=== PATIENT | female | born 1990 | race African-American/Black ===

== ENCOUNTER 2017-06-21 11:05 | Emergency (ER) | payer SELFPAY ==
[~2017-06-21] VITALS: Ht 177.8 cm; Wt 75.0 kg
[~2017-06-21 11:05] MED LIST: DOXY100T PO; IBUP800T23 PO; LORTA5 PO; PENI500T PO
[2017-06-21 11:07] VITALS: BP 140/71; PULSE 105; RESP 18; TEMP 98.7; O2SAT 100
[2017-06-21] MEDS ORDERED: NAPR500 PO (11:37)
[2017-06-21] MEDS ORDERED: CLIN150C14 PO (11:37)
--- NOTE | 2017-06-21 11:43 | PD ---
HPI Chief Complaint: Oral / Dental Pain or Problem Time Seen by Provider: 11:21 Travel History International Travel<30 days: No Contact w/Intl Traveler<30days: No Traveled to known affect area: No History of Present Illness HPI Patient comes emergency department complaining of a dental abscess ongoing for 1 week. Patient reports she has been taking penicillin that she have her mom with no improvement of symptoms. Patient also been gargling with warm salt water gargles as well as applying warm compresses with minimal to no improvement of symptoms. Pain is worse with eating. Denies any fevers, difficulty swallowing, or . Denies any radiation of pain. Describes pain as pressure-like in nature of her right mandible anteriorly. PFSH Past Medical History Anemia: Yes Asthma: No Anxiety: No Depression: No Heart Rhythm Problems: No Cancer: No Cardiovascular Problems: No High Cholesterol: No Chemotherapy: No Chest Pain: No Congestive Heart Failure: No COPD: No Diabetes: No Diminished Hearing: No Endocrine: No Gastrointestinal Disorders: No Genitourinary: No Hypertension: Yes (during ) Immune Disorder: No Implanted Vascular Access Dvce: No Musculoskeletal: No Neurologic: No Psychiatric: No Reproductive: No Respiratory: No Radiation Therapy: No Sleep Apnea: No Thyroid Disease: No ?: Not Menopausal: No : 1 Para: 1 Ectopic : No Ovarian Cysts: No Dilation and Curettage (D&C): No Tubal Ligation: No Past Surgical History Section: Yes (2010) Other Surgery: Yes (c sections ) Social History Alcohol Use: Yes (OCCASIONALLY) Tobacco Use: Yes (5 CIG PER DAY) Substance Use: No Allergies-Medications (Allergen,Severity, Reaction): Coded Allergies: No Known Allergies (Unverified , 04/18/13) Reported Meds & Prescriptions Reported Meds & Active Scripts Active Naprosyn (Naproxen) 500 Mg Tab 500 Mg PO Q12HR Clindamycin (Clindamycin HCl) 150 Mg Cap 2 Cap PO Q6H 10 Days Reported Doxycycline Hyclate 100 mg (Doxycycline Hyclate) 100 Mg Tab 100 Mg PO BID 5 Days Hydrocodone/Acetaminophen 5 mg/325 mg 1 Tab Tab 1 Tab PO Q4H PRN Pen Vk (Penicillin V Potassium) 500 Mg Tab 500 Mg PO DAILY Ibuprofen 800 Mg Tab 800 Mg PO Q6H PRN Review of Systems Except as stated in HPI: all other systems reviewed are Neg Physical Exam Narrative GENERAL: Well-developed, well nourished, in no acute distress, and non-ill appearing. SKIN: Focused skin assessment warm and dry. HEAD: Atraumatic. Normocephalic. EYES: Pupils equal and round. EOMI. No scleral icterus. No injection or drainage. ENT: No nasal bleeding or discharge. Mucous membranes pink and moist. Poor dentition with palpable and visible abscess. Uvula is midline. Patient will swallowing saliva. Floor the mouth, submandibular, and submental are all soft palpation. NECK: Trachea midline. No cervical lymphadenopathy. Supple. No nuclear rigidity. RESPIRATORY: No accessory muscle use. No respiratory distress. MUSCULOSKELETAL: No obvious deformities. No clubbing. No cyanosis. No edema. Full range of motion. NEUROLOGICAL: Awake and alert. No obvious cranial nerve deficits. Motor grossly within normal limits. Normal speech. PSYCHIATRIC: Appropriate mood and affect; insight and judgment normal. Data Data Last Documented VS Vital Signs Date Time Temp Pulse Resp B/P (MAP) Pulse Ox O2 Delivery O2 Flow Rate FiO2 06/21/17 11:07 98.7 105 18 140/71 (94) 100 Orders Orders Ed Discharge Order (06/21/17 11:37) Wound Culture And Gram Stain (06/21/17 11:37) Clindamycin (Cleocin) (06/21/17 11:45) MDM Medical Decision Making Medical Screen Exam Complete: Yes Emergency Medical Condition: Yes Differential Diagnosis Dental abscess, dental caries, dentalgia Narrative Course The patient presented with dental pain. There is no fever. There is no significant facial swelling or evidence of cellulitis. There is poor dentition and evidence of drainable abscess. The abscess was drained intraorally. The patient tolerated the procedure well. There is no evidence of significant deep or invading abscess at this time. The patient will be placed on antibiotics and pain medication. The patient was instructed to follow up with a dentist. The patient was given the dental referral sheet. Warnings were discussed with the patient regarding worsening of infection. The patient is to return if pain worsens, develops progressive swelling or facial redness or fever. The patient agrees with plan. Patient in no obvious distress upon re-evaluation. Patient was asked if they wanted to speak to my attending, which the patient did not wish to do at this time. Any questions/concerns in reference to patient diagnosis/condition discussed and clarified prior to patient's discharge. Reinforced sheer importance of close follow up with patient's primary physician or primary care clinic. Instructed patient to return to ED immediately, if symptoms return/ worsen. Patient showed understanding of above instructions. Further instructions and recommendations were detailed in discharge paperwork. Patient ambulated without difficulty out of ED at discharge. Procedures Procedure Narrative Verbal consent was obtained. Topical Hurricaine spray was used to successfully anesthetized the abscess. A #15 scalpel used to make 1 cm incision across the area of abscess and purulent discharge was drained. Patient tolerated procedure well. There were no complications. Diagnosis Primary Impression: Dental abscess Referrals: [facility] Patient Instructions: Dental Abscess (ED), Dental Caries (DC), General Instructions Additional Instructions: Follow-up with your primary care physician and dentist as soon as possible. Rinse mouth with warm salt water gargles. Take all medication as prescribed. Return to the emergency department if symptoms get worse. Med/Other Pt SpecificInfo: Prescription(s) given Scripts Naproxen (Naprosyn) 500 Mg Tab 500 MG PO Q12HR, #14 TAB 0 Refills Prov: Faye Walls MD 06/21/17 Clindamycin (Clindamycin) 150 Mg Cap 2 CAP PO Q6H for Infection for 10 Days, #80 CAP 0 Refills Prov: Faye Walls MD 06/21/17 Disposition: 01 DISCHARGE HOME Condition: Stable [place] Jun 21, 2017 11:43
[2017-06-21] MEDS ORDERED: CLINDAMYCIN 150 MG CAP PO ONE (11:45)
== END 2017-06-21 11:59 | disposition home or self-care (01) ==
LOC: NEPD 11:05
DX: K04.7 Periapical abscess without sinus (principal); D64.9 Anemia, unspecified; I10 Essential (primary) hypertension; F17.210 Nicotine dependence, cigarettes, uncomplicated
CPT/HCPCS: 41800; 87070; 87205